=== PATIENT | female | born 2005 | race Caucasian/White ===

== ENCOUNTER 2024-10-31 18:18 | Emergency (ER) | payer SELFPAY ==
[~2024-10-31] VITALS: Ht 157.5 cm; Wt 60.0 kg
[2024-10-31 21:41] LABS: BASOPHILS 0.6 % (0-2); EOSINOPHILS 1.2 % (0-6); HEMATOCRIT 46.8 % (35.0-50.0); LYMPHOCYTES 52.3 % (24-44); MCH 36.8 (27-36); MCHC 36.2 g/dl (30-36); MCV 101.4 fl (81-99); MONOCYTES 6.7 % (0-12); NEUTROPHILS 39.2 % (39-80); PLATELET COUNT 239 K/uL (140-440); RBC 4.62 M/ul (4.3-5.7); RDW 13.2 (10.5-15.0)
[2024-10-31 21:46] LABS: PREGNANCY TEST, URINE NEGATIVE (NEG)
[2024-10-31 21:58] LABS: AMPHETAMINES, URINE NEGATIVE (NEGATIVE); BARBITURATES, URINE NEGATIVE (NEGATIVE); BENZODIAZEPINE, URINE NEGATIVE (NEGATIVE); BUPRENORPHINE, URINE NEGATIVE (NEGATIVE); CANNABINOID, URINE NEGATIVE (NEGATIVE); COCAINE, URINE NEGATIVE (NEGATIVE); ECSTASY, URINE NEGATIVE (NEGATIVE); FENTANYL, URINE NEGATIVE (NEGATIVE); METHADONE, URINE NEGATIVE (NEGATIVE); OPIATES, URINE NEGATIVE (NEGATIVE); OXYCODONE, URINE NEGATIVE (NEGATIVE); PHENCYCLIDINE, URINE NEGATIVE (NEGATIVE)
[2024-10-31 22:04] LABS: ALBUMIN 4.3 g/dL (3.4-5.0); ALBUMIN/GLOBULIN RATIO 1.16 (1.1-2.4); ANION GAP 14.7 (7-21); BILIRUBIN, TOTAL 0.4 mg/dL (0.2-1.0); BUN/CREATININE RATIO 8.57 (6.0-28.6); CALCIUM 9.3 mg/dL (8.5-10.1); CREATININE, SERUM 0.7 mg/dL (0.55-1.02); POTASSIUM 3.7 mmol/L (3.5-5.1)
[2024-10-31 22:25] VITALS: BP 113/78
== END 2024-10-31 22:30 | disposition home or self-care (01) ==
LOC: ED 18:18
PROVIDERS: Family Medicine
DX: T83.83XA Hemorrhage due to genitourinary prosthetic devices, implants and grafts, initial encounter (principal)
CPT/HCPCS: 36415; 74018; 80053; 80307; 83735; 84703; 85025; 99284

== ENCOUNTER 2025-02-17 04:56 | Emergency (ER) | payer OTHER ==
[~2025-02-17] VITALS: Ht 157.5 cm; Wt 58.0 kg
--- OUTSIDE RECORDS SUMMARY | 2025-02-17 05:01 | XMS ---
PreManage Notification: WALKER ALLEN [employer] Director Events No recent Security Events currently on file CRITERIA MET - [facility] - 2 Visits in 30 Days - [facility] - 3 Facilities in 90 Days CARE PROVIDERS There are no care providers on record at this time. Ashley has no Care Guidelines for this patient. ESteven VISIT COUNT (12 MO.) [address] ([place]) 1 [facility] ([place]) TOTAL 4 NOTE: Visits indicate total known visits. ED/C VISIT TRACKING (12 MO.) 02/17/2025 04:56 ALESIA Dixon TYPE: Emergency COMPLAINT: - KNEE INJURY 02/05/2025 16:54 [facility] Nghia KEMP (Nghia Agrawal) TYPE: Emergency DIAGNOSES: - Alcohol use, unspecified with withdrawal, uncomplicated - detox - Detox Evaluation 01/13/2025 00:45 [facility] [place] ([place]) TYPE: Emergency COMPLAINT: - SYNCOPE DIAGNOSES: 1. 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
[2025-02-17] MEDS ORDERED: CHLORDIAZEPOXID25 MG PO (05:13)
[2025-02-17] MEDS ORDERED: OXYCODONE HCL 5 MG TAB PO ONE (05:45)
[2025-02-17] MEDS ORDERED: CHLORDIAZEPOXIDE 25 MG CAP PO ONE (05:45)
[2025-02-17] MEDS ORDERED: OXYCODONE HCL5 M2 PO ×2 (05:50→07:08)
[2025-02-17] MEDS ORDERED: OXYCODONE/ACETAMINOPHEN 1 TAB HOME.PACK PO ONE (06:00)
[2025-02-17 07:28] VITALS: BP 108/66
== END 2025-02-17 07:32 | disposition home or self-care (01) ==
LOC: ED 04:56
DX: S82.432A Displaced oblique fracture of shaft of left fibula, initial encounter for closed fracture (principal); S82.252A Displaced comminuted fracture of shaft of left tibia, initial encounter for closed fracture; W19.XXXA Unspecified fall, initial encounter
CPT/HCPCS: 73590; 99283; A9270